=== PATIENT | female | born 1985 | race Caucasian/White ===

== ENCOUNTER 2018-02-28 08:07 | Emergency (ER) | payer MEDICAID ==
[~2018-02-28] VITALS: Ht 157.5 cm; Wt 108.9 kg
[2018-02-28 09:28] LABS: Basophils # (auto) 0 uL; Eosinophils # (auto) 0 uL
[2018-02-28] MEDS ORDERED: ONDANSETRON HCL 4 MG/2 ML VIAL IV ONE (09:30)
[2018-02-28] MEDS ORDERED: HYDROmorphone HCL 2 MG/ML VL IV ONE ×2 (09:30→16:15)
[2018-02-28] MEDS ORDERED: LORazepam 2MG/ML-1ML VIAL IV ONE (09:30)
[2018-02-28 09:35] LABS: Basophils % (auto) 0.1 % (0.0-2.0); Lymphocytes # (auto) 0.9 uL; Lymphocytes % (auto) 9.4 % (10.0-50.0); Monocytes # (auto) 0.6 uL; Neutrophils # (auto) 7.9 uL; Neutrophils % (auto) 84.5 % (37.0-80.0); Red Blood Cells 4.18 10^6/uL (4.0-5.20); White Blood Cell 9.4 10^3/uL (4.4-10.8)
[2018-02-28 09:36] LABS: Hematocrit 37.1 % (36.0-46.0); Hemoglobin 10.8 g/dL (12.2-16.2); Mean Corpuscular Hemoglobin 25.8 pg (28.0-32.0); Mean Corpuscular Hgb Conc. 29.1 g/dL (32.0-36.0); Mean Corpuscular Volume 88.8 fL (80.0-100.0); Platelet Count (auto) 383 10^3/uL (140-450); Red Cell Distribution Width 15.6 % (11.8-14.3)
[2018-02-28 09:43] LABS: Albumin 2.7 g/dL (3.4-5.0); BUN/Creatinine Ratio 18.8; Calcium 8.8 mg/dL (8.5-10.1); Potassium 5.2 mmol/L (3.5-5.1)
[2018-02-28] MEDS ORDERED: SODIUM CHLORIDE 0.9% 1,000 ML IV ONE (09:45)
[2018-02-28] MEDS ORDERED: DEXAMETHASONE SOD PHOS 10MG/1ML VIAL INJ IV ONE ×2 (09:45→11:00)
[2018-02-28 09:46] LABS: Bilirubin, Total 0.4 mg/dL (0.2-1.0); Total Protein 6.4 g/dL (6.4-8.2)
[2018-02-28] MEDS ORDERED: MORPHINE SULF INJ 2 MG/ML SYRINGE 1ML ONE (10:53)
[2018-02-28] MEDS ORDERED: MORPHINE SULFATE 4 MG/ML SYR/VIAL IV PRN ×2 (11:00)
[2018-02-28] MEDS ORDERED: NITROGLYCERIN 0.4 MG SL TAB SL PRN (11:00)
[2018-02-28] MEDS ORDERED: ONDANSETRON HCL 4 MG/2 ML VIAL IV PRN (11:00)
[2018-02-28 11:32] LABS: INR 1.03 (0.9-1.15); Partial Thromboplastin Time 25.7 sec (23.78-33.04)
[2018-02-28] MEDS: HYDROmorphone HCL 2 MG/ML VL IV PRN ×3 (11:32→18:40)
[2018-02-28] MEDS: LORazepam 2MG/ML-1ML VIAL IV PRN ×2 (12:26→16:39)
[2018-02-28] MEDS ORDERED: DEXAMETHASONE SOD PHOS 4 MG/1ML SDV INJ IV SCH (14:00)
[2018-02-28 17:03] VITALS: BP 120/84
[2018-02-28 17:33] VITALS: BP 120/74
[2018-02-28 18:43] VITALS: BP 124/74
--- NOTE | 2018-03-01 09:08 | NUR ---
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 Hospice arranged by ER staff and MD. No call or page on this patient. Addendum: 03/01/18 at 0909 by Winnie RODRIGUEZ Amended: Links added.
== END 2018-02-28 18:49 | disposition home or self-care (01) ==
LOC: ER 08:07 → EDUNIT# 08:07 → EDBD 08:07 → ER 18:49
DX: G81.91 Hemiplegia, unspecified affecting right dominant side (principal); C71.9 Malignant neoplasm of brain, unspecified; E87.5 Hyperkalemia; R51 Headache
CPT/HCPCS: 36415; 70450; 71045; 72125; 80053; 85025; 85610; 85730; 93005; 94761; 96361; 96374; 96375; 96376; 99284; J1100; J1170; J2060; J2270; J2405; J7030